=== PATIENT | female | born 1985 | race Caucasian/White ===

== ENCOUNTER 2016-11-27 21:00 | Emergency (ER) | payer BC ==
[2016-11-27 21:15] VITALS: BP 143/101
[2016-11-27] MEDS ORDERED: Metoclopramide 10 MG/2 ML SDV ONE (22:02)
[2016-11-27] MEDS ORDERED: diphenhydrAMINE 50 MG/ML SDV ONE (22:03)
[2016-11-27] MEDS ORDERED: Ketorolac 60 MG/2 ML SDV ONE (22:04)
[2016-11-27] MEDS ORDERED: diphenhydrAMINE 50 MG/ML SDV IM ONE (22:08)
[2016-11-27] MEDS ORDERED: Ketorolac 60 MG/2 ML SDV IM ONE (22:08)
[2016-11-27] MEDS ORDERED: Metoclopramide 10 MG/2 ML SDV IM ONE (22:08)
--- NOTE | 2016-11-27 22:37 | EDM.PDOC ---
ED HPI GENERAL MEDICAL PROBLEM - General Chief Complaint: Headache Stated Complaint: Headache Time Seen by Provider: 11/27/16 21:50 Source of Information: Reports: Patient, RN Notes Reviewed History Limitations: Reports: No Limitations - History of Present Illness INITIAL COMMENTS - FREE TEXT/NARRATIVE: 31 year old female presents to the ED with complaints of headache behind both eyes and into her neck. She symptoms started two days ago and have progressively worsened. She's tried OTC pain relievers, benadryl, and essential oils with no relief. She has associated photophobia and phonophobia. She is nauseated but has not vomited. No slurred speech, weakness in extremities, vision changes, fever, chills, sweats, chest pain, shortness of breath or abdominal pain. Headache Pain Score (Numeric/FACES): 9 - Related Data Allergies Allergy/AdvReac Type Severity Reaction Status Date / Time fentanyl Allergy Itching Verified 11/27/16 21:15 pertussis vaccine,fluid Allergy Anaphylactic Verified 11/27/16 21:15 [Pertussis Vaccine,Fluid] Shock risperidone Allergy Hives Verified 11/27/16 21:15 cefdinir [From Omnicef] AdvReac Muscle Verified 11/27/16 21:15 Aches promethazine HCl AdvReac Muscle Verified 11/27/16 21:15 [From Phenergan] Weakness Home Meds: Home Meds valACYclovir HCl [Valtrex] 1,000 mg PO DAILY 03/24/15 [History] Levothyroxine 50 mcg PO DAILY 10/25/15 [History] Budesonide [Budesonide EC] 6 mg PO DAILY 01/26/16 [History] Venlafaxine [Effexor XR] 37.5 mg PO DAILY 02/15/16 [History] SUMAtriptan Succinate [Imitrex] 1 tab PO ASDIRECTED PRN 03/13/16 [History] Omeprazole 20 mg PO DAILY 11/27/16 [History] Past Medical History HEENT History: Reports: Impaired Vision Other HEENT History: wears eyeglasses. Cardiovascular History: Reports: Heart Murmur Gastrointestinal History: Reports: GERD Other Gastrointestinal History: Eosinophillic esophagitis Genitourinary History: Reports: Renal Calculus Other Genitourinary History: Hx of kidney stone--required removal. 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 03/14/16 lap vaginal hysterectomy with no complications Musculoskeletal History: Reports: Back Pain, Chronic Neurological History: Reports: Migraines Psychiatric History: Reports: Bipolar, Depression, Suicide Attempt Endocrine/Metabolic History: Reports: Hypothyroidism Hematologic History: Reports: Anemia Dermatologic History: Reports: Other (See Below) Other Dermatologic History: cold sores - Infectious Disease History Infectious Disease History: Reports: Chicken Pox, Herpes - Past Surgical History HEENT Surgical History: Reports: Naso-Sinus Surgery Cardiovascular Surgical History: Reports: None GI Surgical History: Reports: Cholecystectomy, Hernia Repair/Other Female Surgical History: Reports: Section, Hysterectomy, Lithotripsy /ESWL, Ureteral Stent Endocrine Surgical History: Reports: None Neurological Surgical History: Reports: None Musculoskeletal Surgical History: Reports: None Social & Family History - Family History Family Medical History: Noncontributory - Tobacco Use Smoking Status *Q: Former Smoker Years of Tobacco use: 8 Packs/Tins Daily: 1.5 Used Tobacco, but Quit: Yes Month Tobacco Last Used: 2011 Second Hand Smoke Exposure: No - Caffeine Use Caffeine Use: Reports: None - Alcohol Use Days Per Week of Alcohol Use: 0 - Recreational Drug Use Recreational Drug Use: No Drug Use in Last 12 Months: No - Living Situation & Occupation Living situation: Reports: , with Spouse, with Family Occupation: Unemployed ED ROS GENERAL - Review of Systems Review Of Systems: See Below Constitutional: Reports: No Symptoms. Denies: Fever, Chills, Diaphoresis HEENT: Reports: No Symptoms. Denies: Vision Change Respiratory: Reports: No Symptoms. Denies: Cough Cardiovascular: Reports: No Symptoms. Denies: Chest Pain GI/Abdominal: Reports: Nausea. Denies: Abdominal Pain, Vomiting Neurological: Reports: Headache. Denies: Confusion, Dizziness, Numbness, Syncope, Tingling, Trouble Speaking, Difficulty Walking, Weakness, Change in Speech - Physical Exam Exam: See Below Exam Limited By: No Limitations General Appearance: Alert, WD/WN, Moderate Distress Eye Exam: Bilateral Eye: EOMI, Normal Inspection, PERRL Head Exam: Atraumatic, Normocephalic Neck: Normal Inspection, Supple, Non-Tender, Full Range of Motion, Other (no nuchal rigidity ) Respiratory/Chest: No Respiratory Distress, Lungs Clear, Normal Breath Sounds Cardiovascular: Regular Rate, Rhythm GI/Abdominal: Normal Bowel Sounds, Soft, Non-Tender Neuro Exam (Abbreviated): Alert, Oriented, Normal Cognition, Normal Gait, No Motor/Sensory Deficits, Other (cerebellear testing intact ) Course - Vital Signs Last Recorded V/S: Last Vital Signs Temp 98.2 F 11/27/16 21:12 Pulse 96 11/27/16 21:12 Resp 20 11/27/16 21:12 BP 143/101 H 11/27/16 21:12 Pulse Ox 99 11/27/16 21:12 - Orders/Labs/Meds Meds: Medications Discontinued Medications Generic Name Dose Route Start Last Admin Trade Name Freq PRN Reason Stop Dose Admin Diphenhydramine HCl Confirm 11/27/16 22:03 11/27/16 22:42 Benadryl Administered 11/27/16 22:04 Not Given Dose 50 mg .ROUTE .STK-MED ONE Diphenhydramine HCl 50 mg 11/27/16 22:08 11/27/16 22:44 Benadryl IM 11/27/16 22:09 50 mg ONETIME ONE Administration Ketorolac Tromethamine Confirm 11/27/16 22:04 11/27/16 22:42 Toradol Administered 11/27/16 22:05 Not Given Dose 60 mg .ROUTE .STK-MED ONE Ketorolac Tromethamine 60 mg 11/27/16 22:08 11/27/16 22:10 Toradol IM 11/27/16 22:09 60 mg ONETIME ONE Administration Metoclopramide HCl Confirm 11/27/16 22:02 11/27/16 22:42 Reglan Administered 11/27/16 22:03 Not Given Dose 10 mg .ROUTE .STK-MED ONE Metoclopramide HCl 5 mg 11/27/16 22:08 11/27/16 22:11 Reglan IM 11/27/16 22:09 5 mg ONETIME ONE Administration - Re-Assessments/Exams Free Text/Narrative Re-Assessment/Exam: Neuro exam is normal, CT of head is not indicated. Initial treatment includes Toradol, Reglan, and Benadryl. Patient had significant improvement in symptoms. Her neck muscles are tense and sore, indicating this is likely a tension-type headache rather than migraine. She was educated on treatments for tension headaches including stretching, heating pad, and date night caregiver. Encouraged to return with any new or worsening symptoms. Discharge instructions as documented. Departure - Departure Time of Disposition: 23:21 Disposition: Home, Self-Care 01 Condition: Good Clinical Impression: Tension-type headache - Discharge Information Referrals: Diamond Levin PA-C [Primary Care Provider] - Forms: ED Department Discharge Additional Instructions: Ibuprofen 800mg every 8 hours as needed See your chiropractor and discuss ultrasound therapy. Also consider Dr. [facility] with [facility] Return to Er if you develop fever, or new or worsening symptoms No driving today due to sedating medications.
== END 2016-11-27 23:35 | disposition home or self-care (01) ==
LOC: JD.ED 21:00
DX: G44.209 Tension-type headache, unspecified, not intractable (principal); K21.9 Gastro-esophageal reflux disease without esophagitis; F31.9 Bipolar disorder, unspecified; Z86.2 Personal history of diseases of the blood and blood-forming organs and certain disorders involving the immune mechanism; E03.9 Hypothyroidism, unspecified; Z90.710 Acquired absence of both cervix and uterus; Z98.890 Other specified postprocedural states; Z90.49 Acquired absence of other specified parts of digestive tract; Z87.442 Personal history of urinary calculi; Z87.891 Personal history of nicotine dependence; Z79.899 Other long term (current) drug therapy; Z88.1 Allergy status to other antibiotic agents; Z88.7 Allergy status to serum and vaccine; Z88.8 Allergy status to other drugs, medicaments and biological substances
CPT/HCPCS: 96372; 99283; J1200; J1885; J2765

== ENCOUNTER 2017-02-16 17:08 | Emergency (ER) | payer BC ==
[2017-02-16] MEDS ORDERED: Sodium Chloride 0.9% 1,000 ML IV ONE (17:36)
[2017-02-16] MEDS ORDERED: Ketorolac 30 MG/ML SDV IVPUSH ONE (17:36)
[2017-02-16] MEDS ORDERED: Haloperidol Lactate 5 MG/ML SDV IVPUSH ONE (17:36)
[2017-02-16] MEDS ORDERED: Sodium Chloride 0.9% 10 ML Syringe FLUSH PRN (17:36)
[2017-02-16] MEDS ORDERED: Ondansetron 4 MG/2 ML SDV IVPUSH ONE (17:36)
[2017-02-16] MEDS ORDERED: diphenhydrAMINE 50 MG/ML SDV IVPUSH ONE (17:36)
[2017-02-16] MEDS ORDERED: Benzonatate 100 MG Cap PO ONE (17:37)
--- NOTE | 2017-02-16 17:44 | EDM.PDOC ---
ED HPI GENERAL MEDICAL PROBLEM - General Chief Complaint: Headache Stated Complaint: MIGRANE/CHEST PAIN Time Seen by Provider: 02/16/17 17:21 Source of Information: Reports: Patient History Limitations: Reports: No Limitations - History of Present Illness INITIAL COMMENTS - FREE TEXT/NARRATIVE: Patient is a 32-year-old female who presents to the ED complaining of right- sided retro-orbital headache, productive cough, and intermittent chest pain. Patient states she's been fighting a upper respiratory infection for the past month. She's been on 2 rounds of antibiotics doxycycline and also Augmentin with incomplete resolution. Patient states 3 of her daughters had viral upper respiratory infections that resolved on their own accord. States her cough is productive with intermittent wheezing noted. She does have a history of asthma and states she been using a albuterol inhaler intermittently. She was also on prednisone for a short period of time as well. Cough has been keeping her up at night. States this past Sunday developed the headache this persisted throughout the course of the week. She has been getting intermittent relief with taking Excedrin Migraine and Tylenol. States this past week has been very stressful. 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 This means that they will be looking for a different job elsewhere. In addition her best friend's 3-year-old daughter this past . She has not been getting much sleep. She's also been experiencing intermittent left- sided/substernal chest discomfort with taking a deep breath and coughing. States at times chest discomfort does come on at rest. She denies any fever/ chills, shortness of breath, dizziness, vision changes, no sitting to extremities, stiff neck, nausea or vomiting, abdominal pain, swelling to her lower extremity is, or any additional complaints. She has no history of DVT/PE. Headache Pain Score (Numeric/FACES): 8 - Related Data Allergies Allergy/AdvReac Type Severity Reaction Status Date / Time fentanyl Allergy Itching Verified 11/27/16 21:15 pertussis vaccine,fluid Allergy Anaphylactic Verified 11/27/16 21:15 [Pertussis Vaccine,Fluid] Shock risperidone Allergy Hives Verified 11/27/16 21:15 cefdinir [From Omnicef] AdvReac Muscle Verified 11/27/16 21:15 Aches promethazine HCl AdvReac Muscle Verified 11/27/16 21:15 [From Phenergan] Weakness Home Meds: Home Meds valACYclovir HCl [Valtrex] 1,000 mg PO DAILY 03/24/15 [History] Levothyroxine 50 mcg PO DAILY 10/25/15 [History] Budesonide [Budesonide EC] 6 mg PO DAILY 01/26/16 [History] Venlafaxine [Effexor XR] 37.5 mg PO DAILY 02/15/16 [History] SUMAtriptan Succinate [Imitrex] 1 tab PO ASDIRECTED PRN 03/13/16 [History] Omeprazole 20 mg PO DAILY 11/27/16 [History] Benzonatate [Tessalon Perles] 100 mg PO TID PRN #21 cap 02/16/17 [Rx] Past Medical History HEENT History: Reports: Impaired Vision Other HEENT History: wears eyeglasses. Cardiovascular History: Reports: Heart Murmur Gastrointestinal History: Reports: GERD Other Gastrointestinal History: Eosinophillic esophagitis Genitourinary History: Reports: Renal Calculus Other Genitourinary History: Hx of kidney stone--required removal. 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 03/14/16 lap vaginal hysterectomy with no complications Musculoskeletal History: Reports: Back Pain, Chronic Neurological History: Reports: Migraines Psychiatric History: Reports: Bipolar, Depression, Suicide Attempt Endocrine/Metabolic History: Reports: Hypothyroidism Hematologic History: Reports: Anemia Dermatologic History: Reports: Other (See Below) Other Dermatologic History: cold sores - Infectious Disease History Infectious Disease History: Reports: Chicken Pox, Herpes - Past Surgical History HEENT Surgical History: Reports: Naso-Sinus Surgery Cardiovascular Surgical History: Reports: None GI Surgical History: Reports: Cholecystectomy, Hernia Repair/Other Female Surgical History: Reports: Section, Hysterectomy, Lithotripsy /ESWL, Ureteral Stent Endocrine Surgical History: Reports: None Neurological Surgical History: Reports: None Musculoskeletal Surgical History: Reports: None Social & Family History - Family History Family Medical History: Noncontributory - Tobacco Use Smoking Status *Q: Former Smoker Years of Tobacco use: 8 Packs/Tins Daily: 1.5 Used Tobacco, but Quit: Yes Month Tobacco Last Used: 2011 Second Hand Smoke Exposure: No - Caffeine Use Caffeine Use: Reports: None - Alcohol Use Days Per Week of Alcohol Use: 0 - Recreational Drug Use Recreational Drug Use: No Drug Use in Last 12 Months: No - Living Situation & Occupation Living situation: Reports: , with Spouse, with Family Occupation: Unemployed ED ROS GENERAL - Review of Systems Review Of Systems: See Below Constitutional: Reports: Fatigue. Denies: Fever, Chills, Malaise, Weakness, Decreased Appetite HEENT: Reports: Rhinitis. Denies: Ear Pain, Throat Pain, Throat Swelling Respiratory: Reports: Cough, Sputum. Denies: Shortness of Breath, Wheezing, Pleuritic Chest Pain, Hemoptysis Cardiovascular: Reports: Chest Pain. Denies: Dyspnea on Exertion, Lightheadedness, Palpitations, PND, Syncope GI/Abdominal: Reports: No Symptoms : Reports: No Symptoms Musculoskeletal: Reports: No Symptoms Skin: Reports: No Symptoms Neurological: Reports: Headache. Denies: Dizziness, Numbness, Tingling, Difficulty Walking Psychiatric: Reports: Anxiety - Physical Exam Exam: See Below Exam Limited By: No Limitations General Appearance: Alert, WD/WN, Mild Distress Eye Exam: Bilateral Eye: EOMI, PERRL Ears: Normal External Exam, Normal Canal, Hearing Grossly Normal, Normal TMs Nose: Nasal Swelling, Nasal Drainage, Clear Rhinorrhea Throat/Mouth: Normal Inspection, Normal Oropharynx, Normal Voice, No Airway Compromise Head Exam: Atraumatic, Normocephalic Neck: Normal Inspection, Supple, Non-Tender, Full Range of Motion. No: Lymphadenopathy (L), Lymphadenopathy (R) Respiratory/Chest: No Respiratory Distress, Lungs Clear, Normal Breath Sounds, No Accessory Muscle Use, Chest Non-Tender Cardiovascular: Normal Peripheral Pulses, No Murmur, Tachycardia GI/Abdominal: Normal Bowel Sounds, Soft, Non-Tender, No Organomegaly, No Distention Neuro Exam (Abbreviated): Alert, Oriented, CN II-XII Intact, Normal Cognition, Normal Gait, No Motor/Sensory Deficits, Other (Cerebellar function intact. No sensorimotor deficits) Back Exam: Normal Inspection Extremities: Normal Inspection, Normal Range of Motion, Non-Tender, No Pedal Edema, Normal Capillary Refill Psychiatric: Normal Affect, Normal Mood Skin Exam: Warm, Dry, Intact, Normal Color Course - Vital Signs Last Recorded V/S: Last Vital Signs Temp 97.2 F 02/16/17 17:16 Pulse 86 02/16/17 20:19 Resp 18 02/16/17 20:19 BP 134/74 02/16/17 20:19 Pulse Ox 93 L 02/16/17 20:19 - Orders/Labs/Meds Orders: Active Orders 24 hr Category Date Time Status EKG Documentation Completion [RC] STAT Care 02/16/17 17:36 Active Peripheral IV Care [RC] . DIRECTED Care 02/16/17 17:36 Active Chest 2V [CR] Stat Exams 02/16/17 17:36 Taken Peripheral IV Insertion Adult [OM.PC] Stat Oth 02/16/17 17:36 Ordered Labs: Laboratory Tests 02/16/17 02/16/17 Range/Units 18:15 18:15 WBC 11.35 H (3.98-10.04) K/mm3 RBC 4.88 (3.98-5.22) M/mm3 Hgb 13.8 (11.2-15.7) gm/L Hct 42.5 (34.1-44.9) % MCV 87.1 (79.4-94.8) fl MCH 28.3 (25.6-32.2) pg MCHC 32.5 (32.2-35.5) g/dl RDW Std Deviation 45.9 (36.4-46.3) fL Plt Count 348 (182-369) K/mm3 MPV 9.4 (9.4-12.3) fl Neut % (Auto) 66.9 (34.0-71.1) % Lymph % (Auto) 25.1 (19.3-51.7) % [place] % (Auto) 5.4 (4.7-12.5) % Eos % (Auto) 1.7 (0.7-5.8) Baso % (Auto) 0.3 (0.1-1.2) % Neut # (Auto) 7.60 H (1.56-6.13) K/mm3 Lymph # (Auto) 2.85 (1.18-3.74) K/mm3 [place] # (Auto) 0.61 H (0.24-0.36) K/mm3 Eos # (Auto) 0.19 (0.04-0.36) K/mm3 Baso # (Auto) 0.03 (0.01-0.08) K/mm3 Sodium 139 (136-145) mEq/L Potassium 4.3 (3.5-5.1) mEq/L Chloride 105 (98-107) mEq/L Carbon Dioxide 25 (21-32) mEq/L Anion Gap 13.3 (5-15) BUN 15 (7-18) mg/dL Creatinine 0.8 (0.55-1.02) mg/dL Est Cr Clr Drug Dosing 96.26 mL/min Estimated GFR (MDRD) > 60 (>60) mL/min BUN/Creatinine Ratio 18.8 H (14-18) Glucose 118 H (74-106) mg/dL Calcium 9.1 (8.5-10.1) mg/dL Total Bilirubin 0.2 (0.2-1.0) mg/dL AST 14 L (15-37) U/L ALT 21 (14-59) U/L Alkaline Phosphatase 98 (46-116) U/L C-Reactive Protein < 0.2 (<1.0) mg/dL Total Protein 7.6 (6.4-8.2) g/dl Albumin 3.9 (3.4-5.0) g/dl Globulin 3.7 gm/dL Albumin/Globulin Ratio 1.1 (1-2) Meds: Medications Discontinued Medications Generic Name Dose Route Start Last Admin Trade Name Freq PRN Reason Stop Dose Admin Benzonatate 200 mg 02/16/17 17:37 02/16/17 18:09 Tessalon Perles PO 02/16/17 17:38 200 mg ONETIME ONE Administration Diphenhydramine HCl 50 mg 02/16/17 17:36 02/16/17 18:08 Benadryl IVPUSH 02/16/17 17:37 50 mg ONETIME ONE Administration Haloperidol Lactate 5 mg 02/16/17 17:36 02/16/17 18:11 Haldol IVPUSH 02/16/17 17:37 5 mg ONETIME ONE Administration Sodium Chloride 1,000 mls @ 999 mls/hr 02/16/17 17:36 02/16/17 18:11 Normal Saline IV 02/16/17 18:36 999 mls/hr ONETIME ONE Administration Ketorolac Tromethamine 30 mg 02/16/17 17:36 02/16/17 18:10 Toradol IVPUSH 02/16/17 17:37 30 mg ONETIME ONE Administration Ondansetron HCl 4 mg 02/16/17 17:36 02/16/17 18:08 Zofran IVPUSH 02/16/17 17:37 4 mg ONETIME ONE Administration Sodium Chloride 10 ml 02/16/17 17:36 02/16/17 18:12 Saline Flush FLUSH 10 ml ASDIRECTED PRN Administration Keep Vein Open - Re-Assessments/Exams Free Text/Narrative Re-Assessment/Exam: IV established with NS 999 milliliters per hour, Haldol 5 mg IVP, Toradol 30 mg IVP, Benadryl 50 mg IVP, Zofran 4 mg IVP, and Tessalon Perles 200 mg by mouth. We'll obtain basic labs CBC, chem 14, CRP, chest x-ray, and EKG. Chest x-ray did not reveal any acute abnormalities. Normal chest x-ray. EKG sinus rhythm at a rate of [address] changes noted. Labs reviewed with no concerning findings. 1950 Reassessment, patient's feeling much better. She has no chest pain. Vital signs are stable. Heart rate within normal limits. PERC Rule Out. She is ready be discharged home. Discharge instructions as documented. Departure - Departure Time of Disposition: 20:12 Disposition: Home, Self-Care 01 Condition: Good Clinical Impression: Viral upper respiratory tract infection with cough, Headache above the eye region, Atypical chest pain - Discharge Information Prescriptions: Benzonatate [Tessalon Perles] 100 mg PO TID PRN #21 cap PRN Reason: Cough Instructions: Viral Respiratory Infection, [id number], Nonspecific Chest Pain , Sinus Headache Referrals: Diamond Levin PA-C [Primary Care Provider] - Forms: ED Department Discharge Additional Instructions: Upper respiratory infection is viral and well run its course resolving on its own. Treatment is symptomatic care including Flonase 2 sprays each nare twice a day, Tylenol and Motrin in alternating fashion for pain, push the fluids, ensure adequate rest, take Tessalon Perles 1 tablet 3 times a day as needed for cough. Suggest going home this evening finding a dark room with no distractions to get noninterrupted sleep. Follow-up with PCP as needed. Continue taking all your home medications as prescribed. Return to the ED for any new or worsening symptoms. No driving this evening. - My Orders Last 24 Hours: My Active Orders 02/16/17 17:36 EKG Documentation Completion [RC] STAT Peripheral IV Care [RC] . DIRECTED Chest 2V [CR] Stat Peripheral IV Insertion Adult [OM.PC] Stat - Assessment/Plan Last 24 Hours: My Active Orders 02/16/17 17:36 EKG Documentation Completion [RC] STAT Peripheral IV Care [RC] . DIRECTED Chest 2V [CR] Stat Peripheral IV Insertion Adult [OM.PC] Stat
[2017-02-16 20:21] VITALS: BP 134/74
--- NOTE | 2017-02-19 06:46 | CR ---
Chest: Two views of the chest were obtained. Comparison: Prior chest x-ray of 10/05/15. Heart size and mediastinum are normal. Lungs are clear. Bony structures are unremarkable. Surgical clips are seen from prior cholecystectomy. Impression: 1. Nothing acute is identified on two-view chest x-ray. Diagnostic code #1
== END 2017-02-16 20:25 | disposition home or self-care (01) ==
LOC: SUPCPDRO 17:08 → JD.ED 17:08
DX: J06.9 Acute upper respiratory infection, unspecified (principal); R51 Headache; R07.89 Other chest pain; K21.9 Gastro-esophageal reflux disease without esophagitis; F31.9 Bipolar disorder, unspecified; E03.9 Hypothyroidism, unspecified; Z86.2 Personal history of diseases of the blood and blood-forming organs and certain disorders involving the immune mechanism; Z87.891 Personal history of nicotine dependence; Z79.899 Other long term (current) drug therapy; Z88.1 Allergy status to other antibiotic agents; Z88.8 Allergy status to other drugs, medicaments and biological substances; Z88.7 Allergy status to serum and vaccine
CPT/HCPCS: 36415; 71020; 80053; 85025; 86140; 93005; 96361; 96374; 96375; 99285; A9270; J1200; J1630; J1885; J2405; J7040; J7050; 93010

== ENCOUNTER 2017-05-12 20:29 | Emergency (ER) | payer BC ==
[2017-05-12 20:47] VITALS: BP 135/105
--- NOTE | 2017-05-12 20:51 | EDM.PDOC ---
ED HPI GENERAL MEDICAL PROBLEM - General Chief Complaint: Lower Extremity Injury/Pain Stated Complaint: POSSIBLY REINJURED FOOT FROM PREVIOUS SURGERY Time Seen by Provider: 05/12/17 20:31 Source of Information: Reports: Patient History Limitations: Reports: No Limitations - History of Present Illness INITIAL COMMENTS - FREE TEXT/NARRATIVE: This is a 32-year-old female. About a month ago or so she had surgery on her right foot where she had a fractured sesamoid bone and Dr. Inman remove the sesamoid bone and stitch the tendon back together. Apparently this afternoon she stepped wrong on her foot and she felt a pop and the incision that had previously healed part of it has dehisced and she is having some slight bleeding. When she felt a pop in her right foot she also felt pain that seemed to go up into her calf area on the medial side. Due to the increasing pain she comes to the ER for evaluation. She isn't exactly sure what he might have done to her foot other than take out the sesamoid bone and stitch the tendon. She still has downward movement of her great toe suggesting the tendon is still intact. He denies any other acute symptoms. She has difficulty time walking on that right foot but she does have crutches at home. Left Feet Pain Score (Numeric/FACES): 8 - Related Data Allergies Allergy/AdvReac Type Severity Reaction Status Date / Time fentanyl Allergy Itching Verified 05/12/17 20:48 pertussis vaccine,fluid Allergy Anaphylactic Verified 05/12/17 20:48 [Pertussis Vaccine,Fluid] Shock risperidone Allergy Hives Verified 05/12/17 20:48 cefdinir [From Omnicef] AdvReac Muscle Verified 05/12/17 20:48 Aches promethazine HCl AdvReac Muscle Verified 05/12/17 20:48 [From Phenergan] Weakness Home Meds: Home Meds valACYclovir HCl [Valtrex] 1,000 mg PO DAILY 03/24/15 [History] Levothyroxine 50 mcg PO DAILY 10/25/15 [History] Budesonide [Budesonide EC] 6 mg PO DAILY 01/26/16 [History] Venlafaxine [Effexor XR] 75 mg PO DAILY 02/15/16 [History] SUMAtriptan Succinate [Imitrex] 1 tab PO ASDIRECTED PRN 03/13/16 [History] Omeprazole 40 mg PO BID 11/27/16 [History] Acetaminophen/oxyCODONE [Percocet 325-5 MG] 1 each PO Q4H PRN #10 tab 05/12/17 [ Rx] Pregabalin [Lyrica] 100 mg PO DAILY 05/12/17 [History] Past Medical History HEENT History: Reports: Impaired Vision Other HEENT History: wears eyeglasses. Cardiovascular History: Reports: Heart Murmur Gastrointestinal History: Reports: GERD Other Gastrointestinal History: Eosinophillic esophagitis Genitourinary History: Reports: Renal Calculus Other Genitourinary History: Hx of kidney stone--required removal. CSO History: Reports: Other OB/BYN History: CSX x2, HX of preeclampsia with first and high blood pressure with second . 03/14/16 lap vaginal hysterectomy with no complications Musculoskeletal History: Reports: Back Pain, Chronic Neurological History: Reports: Migraines Psychiatric History: Reports: Bipolar, Depression, Suicide Attempt Endocrine/Metabolic History: Reports: Hypothyroidism Hematologic History: Reports: Anemia Dermatologic History: Reports: Other (See Below) Other Dermatologic History: cold sores - Infectious Disease History Infectious Disease History: Reports: Chicken Pox, Herpes - Past Surgical History HEENT Surgical History: Reports: Naso-Sinus Surgery Cardiovascular Surgical History: Reports: None GI Surgical History: Reports: Cholecystectomy, Hernia Repair/Other Female Surgical History: Reports: Section, Hysterectomy, Lithotripsy /ESWL, Ureteral Stent Endocrine Surgical History: Reports: None Neurological Surgical History: Reports: None Musculoskeletal Surgical History: Reports: None Social & Family History - Family History Family Medical History: Noncontributory - Tobacco Use Smoking Status *Q: Former Smoker Years of Tobacco use: 8 Packs/Tins Daily: 1.5 Used Tobacco, but Quit: Yes Month Tobacco Last Used: 2011 Second Hand Smoke Exposure: No - Caffeine Use Caffeine Use: Reports: None - Alcohol Use Days Per Week of Alcohol Use: 0 - Recreational Drug Use Recreational Drug Use: No Drug Use in Last 12 Months: No - Living Situation & Occupation Living situation: Reports: , with Spouse, with Family Occupation: Unemployed Review of Systems - Review of Systems Review Of Systems: See Below Constitutional: Denies: Chills, Fever Eyes: Reports: No Symptoms Ears: Reports: No Symptoms Nose: Reports: No Symptoms Mouth/Throat: Reports: No Symptoms Respiratory: Reports: No Symptoms Cardiovascular: Reports: No Symptoms GI/Abdominal: Reports: Other (History of colitis and abdominal pain periodically ) Genitourinary: Reports: No Symptoms Musculoskeletal: Reports: Other (As per history of present illness) Skin: Reports: Other (As per history of present illness) Neurological: Reports: Other (Tension-type headaches) Psychiatric: Reports: No Symptoms ED EXAM, GENERAL - Physical Exam Exam: See Below Exam Limited By: No Limitations General Appearance: Alert, WD/WN, Mild Distress Eye Exam: Bilateral Eye: Normal Inspection Ears: Normal External Exam Nose: Normal Inspection Throat/Mouth: Normal Inspection, Normal Lips, Normal Voice, No Airway Compromise Head: Normocephalic Neck: Supple Respiratory/Chest: No Respiratory Distress Back Exam: Full Range of Motion Extremities: Other (Right foot shows a well-healed incision between the first and second metatarsals and the very tip of that incision appears to have split open slightly and is bleeding slightly, there is no evidence of infection at this time. Movement of the great toe up or down causes pain but she is able to bend down on her own without my help, she does complain of some soreness of the back of her calf as well, she has a 2+ pedal pulse noted) Neurological: Alert, Oriented Psychiatric: Anxious Skin Exam: Warm, Dry Course - Vital Signs Last Recorded V/S: Last Vital Signs Temp 97.5 F 05/12/17 20:42 Pulse 108 H 05/12/17 20:42 Resp 18 05/12/17 20:42 BP 135/105 H 05/12/17 20:42 Pulse Ox 98 05/12/17 20:42 - Orders/Labs/Meds Orders: Active Orders 24 hr Category Date Time Status Foot Comp Min 3V Rt [CR] Stat Exams 05/12/17 20:46 Taken - Radiology Interpretation Free Text/Narrative:: The right foot x-rays do not show any acute findings or fractures. - Re-Assessments/Exams Free Text/Narrative Re-Assessment/Exam: 05/12/17 21:31 I spoke to the patient and her regarding the x-ray results. Going to wrap this. I encouraged her to ice it down and a follow-up with Dr. Inman on Sunday for recheck. I will not place her back on antibiotics since the incision itself does not appear to be draining and does not appear to have any redness or inflammation noted. Departure - Departure Time of Disposition: 21:32 Disposition: Home, Self-Care 01 Condition: Good Clinical Impression: Status post foot surgery, Right foot pain Dehiscence of closure of skin Qualifiers: Encounter type: initial encounter Qualified Code(s): T81.31XA - Disruption of external operation (surgical) wound, not elsewhere classified, initial encounter - Discharge Information Prescriptions: Acetaminophen/oxyCODONE [Percocet 325-5 MG] 1 each PO Q4H PRN #10 tab PRN Reason: Pain Referrals: Debo Manning PA-C [Primary Care Provider] - Elgin Inman II, DPM [Physician] - Forms: ED Department Discharge Additional Instructions: Crutches at all times do not bear weight on that right foot, keep it up and elevated take Percocet for pain and use the ice as needed to help with the pain , follow up with Dr. Inman on Sunday for recheck, return to the ER if needed - My Orders Last 24 Hours: My Active Orders 05/12/17 20:46 Foot Comp Min 3V Rt [CR] Stat - Assessment/Plan Last 24 Hours: My Active Orders 05/12/17 20:46 Foot Comp Min 3V Rt [CR] Stat
--- NOTE | 2017-05-13 08:58 | CR ---
Right foot: Four views of the right foot were obtained. Comparison: No prior foot exam. Large os navicularis is noted. Joint spaces are preserved. No acute fracture, dislocation or other bony abnormality is seen. Impression: 1. Large os navicularis. 2. No additional abnormality is appreciated on right foot exam. Diagnostic code #2
== END 2017-05-12 21:40 | disposition home or self-care (01) ==
LOC: JD.ED 20:29
DX: T81.31XA Disruption of external operation (surgical) wound, not elsewhere classified, initial encounter (principal); Z98.890 Other specified postprocedural states; K21.9 Gastro-esophageal reflux disease without esophagitis; F31.9 Bipolar disorder, unspecified; E03.9 Hypothyroidism, unspecified; Z87.891 Personal history of nicotine dependence; Z79.899 Other long term (current) drug therapy; Z88.1 Allergy status to other antibiotic agents; Z88.8 Allergy status to other drugs, medicaments and biological substances; Z88.7 Allergy status to serum and vaccine
CPT/HCPCS: 73630-26-RT; 73630-RT; 99284

== ENCOUNTER 2017-07-11 08:40 | Day surgery (SDC) | payer MEDICAID ==
[~2017-07-11 08:40] MED LIST: Lactated Ringers 1,000 ML IV SCH; Lidocaine 1% 4 ML ONE; Lidocaine 1%/Sod Bicarbonate in NS 8.4% 1 ML Syringe IDERM PRN; Midazolam 1 MG/ML 2 ML SDV ONE; Propofol 200 MG/20 ML SDV ONE; Sodium Chloride 0.9% 10 ML Syringe FLUSH PRN; fentaNYL 100 MCG/2 ML SDV ONE
[2017-07-11] MEDS ORDERED: Bupivacaine 0.25% 30 ML SDV ONE (08:44)
--- NOTE | 2017-07-11 08:55 | PCM.PREANE ---
Preanesthetic Assessment - Procedure Proposed Procedure: I and D Right first web space - Anesthesia/Transfusion/Family Hx Anesthesia History: Prior Anesthesia Without Reaction Family History of Anesthesia Reaction: No Transfusion History: No Prior Transfusion(s) Intubation History: Unknown - Review of Systems General: No Symptoms Pulmonary: No Symptoms Cardiovascular: No Symptoms Gastrointestinal: No Symptoms Neurological: No Symptoms Other: Reports: Thyroid Problems (hypothyroid), Anxiety - Physical Assessment NPO Status Date: 07/10/17 NPO Status Time: 00:00 Pulse: 94 O2 Sat by Pulse Oximetry: 96 Respiratory Rate: 20 Blood Pressure: 128/77 Temperature: 37.3 C Height: 1.65 m Weight: 92.533 kg ASA Class: 2 Mental Status: Alert & Oriented x3 Airway Class: Mallampati = 1 Dentition: Reports: Normal Dentition, [place](s) Thyro-Mental Finger Breadths: 3 Mouth Opening Finger Breadths: 3 ROM/Head Extension: Full Lungs: Clear to Auscultation, Normal Respiratory Effort Cardiovascular: Regular Rate, Regular Rhythm, No Murmurs - Lab Values: Laboratory Last Values MRSA (PCR) Negative 07/10/17 15:44 - Allergies Allergies/Adverse Reactions: Allergies Allergy/AdvReac Type Severity Reaction Status Date / Time cephalexin Allergy Headache Verified 07/10/17 13:14 pertussis vaccine,fluid Allergy Anaphylactic Verified 05/12/17 20:48 [Pertussis Vaccine,Fluid] Shock risperidone Allergy Hives Verified 05/12/17 20:48 shellfish derived Allergy Anaphylactic Verified 07/10/17 13:14 Shock cefdinir [From Omnicef] AdvReac Muscle Verified 05/12/17 20:48 Aches promethazine HCl AdvReac Muscle Verified 05/12/17 20:48 [From Phenergan] Weakness - Blood Blood Available: No Product(s) Available: None - Anesthesia Plan Pre-Op Medication Ordered: None - Acknowledgements Anesthesia Type Planned: MAC Pt an Appropriate Candidate for the Planned Anesthesia: Yes Alternatives and Risks of Anesthesia Discussed w Pt/Guardian: Yes Pt/Guardian Understands and Agrees with Anesthesia Plan: Yes PreAnesthesia Questionnaire HEENT History: Reports: Allergic Rhinitis, Impaired Vision Other HEENT History: wears eyeglasses. Cardiovascular History: Reports: Heart Murmur Respiratory History: Reports: Asthma Gastrointestinal History: Reports: GERD Other Gastrointestinal History: Eosinophillic esophagitis Genitourinary History: Reports: Renal Calculus Other Genitourinary History: Hx of kidney stone--required removal. 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 03/14/16 lap vaginal hysterectomy with no complications Musculoskeletal History: Reports: Back Pain, Chronic Neurological History: Reports: Migraines Psychiatric History: Reports: Bipolar, Depression, Suicide Attempt Endocrine/Metabolic History: Reports: Hypothyroidism Hematologic History: Reports: Anemia Dermatologic History: Reports: Other (See Below) Other Dermatologic History: cold sores - Infectious Disease History Infectious Disease History: Reports: Chicken Pox, Herpes - Past Surgical History HEENT Surgical History: Reports: Naso-Sinus Surgery Other HEENT Surgeries/Procedures: Deviated septum repair Cardiovascular Surgical History: Reports: None Other Cardiovascular Surgeries/Procedures: Pt states Dr. Saldivar heard a heart murmur in the clinic. States she has one with the last and it went away. GI Surgical History: Reports: Cholecystectomy, EGD, Hernia Repair/Other Other GI Surgeries/Procedures: Umbilical hernia repair Female Surgical History: Reports: Section, Hysterectomy, Lithotripsy /ESWL, Ureteral Stent Other Female Surgeries/Procedures: Kidney stent on R kidney Endocrine Surgical History: Reports: None Neurological Surgical History: Reports: None Musculoskeletal Surgical History: Reports: None - SUBSTANCE USE Smoking Status *Q: Former Smoker Tobacco Use Within Last Twelve Months: No Second Hand Smoke Exposure: No Days Per Week of Alcohol Use: 0 Number of Drinks Per Day: 0 Total Drinks Per Week: 0 Recreational Drug Use History: No - HOME MEDS Home Medications: Home Meds valACYclovir HCl [Valtrex] 1,000 mg PO DAILY 03/24/15 [History] Levothyroxine 50 mcg PO DAILY 10/25/15 [History] Budesonide [Budesonide EC] 6 mg PO DAILY 01/26/16 [History] SUMAtriptan Succinate [Imitrex] 1 tab PO ASDIRECTED PRN 03/13/16 [History] Omeprazole 40 mg PO BID 11/27/16 [History] ALPRAZolam [Xanax] 0.25 mg PO ASDIRECTED PRN 07/10/17 [History] Acetaminophen/HYDROcodone [[place] 325-5 MG] 1 - 2 tab PO Q6H PRN #30 tablet 07/10 [Rx] Albuterol [Proair HFA] 1 puff INH ASDIRECTED PRN 07/10/17 [History] Aspirin 325 mg PO BID #84 tab 07/10/17 [Rx] Budesonide/Formoterol Fumarate [Symbicort 80-4.5 Mcg Inhaler] 1 puff INH ASDIRECTED PRN 07/10/17 [History] Zolpidem Tartrate [Ambien] 5 mg PO ASDIRECTED PRN 07/10/17 [History] - CURRENT (IN HOUSE) MEDS Current Meds: Current Medications Lactated Ringer's (Ringers, Lactated) 1,000 mls @ 125 mls/hr IV ASDIRECTED REYES Stop: 07/11/17 23:00 Lidocaine/Sodium Bicarbonate (Buffered Lidocaine 1% In Ns 8.4%) 0.25 ml IDERM ONETIME PRN PRN Reason: Prior to IV Start Stop: 07/11/17 18:00 Sodium Chloride (Saline Flush) 10 ml FLUSH ASDIRECTED PRN PRN Reason: Keep Vein Open Stop: 07/21/17 18:00 Discontinued Medications Fentanyl (Sublimaze) Confirm Administered Dose 100 mcg .ROUTE .STK-MED ONE Stop: 07/11/17 07:54 Lidocaine HCl (Xylocaine-Mpf 1%) Confirm Administered Dose 4 mls @ as directed .ROUTE .STK-MED ONE Stop: 07/11/17 07:54 Midazolam HCl (Versed 1 Mg/Ml) Confirm Administered Dose 2 mg .ROUTE .STK-MED ONE Stop: 07/11/17 07:54 Propofol (Diprivan 20 Ml) Confirm Administered Dose 200 mg .ROUTE .STK-MED ONE Stop: 07/11/17 07:54
[2017-07-11] MEDS ORDERED: Clindamycin Phosphate 900 MG/6 ML AdvVial ONE (09:26)
[2017-07-11] MEDS ORDERED: Sodium Chloride 0.9% 100 ML ONE (09:26)
[2017-07-11] MEDS ORDERED: Propofol 200 MG/20 ML SDV ONE (09:35)
[2017-07-11] MEDS ORDERED: Acetaminophen/HYDROcodone 325-5 MG Tab PO ONE ×2 (09:39→11:25)
[2017-07-11] MEDS ORDERED: fentaNYL 250 MCG/5 ML SDV ONE (09:45)
[2017-07-11] MEDS ORDERED: fentaNYL 100 MCG/2 ML SDV IVPUSH PRN (10:15)
[2017-07-11] MEDS ORDERED: Ketorolac 30 MG/ML SDV IVPUSH PRN (10:15)
[2017-07-11] MEDS ORDERED: HYDROmorphone 0.5 MG/0.5 ML Syringe IVPUSH ONE (10:16)
[2017-07-11] MEDS ORDERED: HYDROmorphone 0.5 MG/0.5 ML Syringe ONE (10:18)
--- NOTE | 2017-07-11 10:19 | PCM.POSTAN ---
POST ANESTHESIA ASSESSMENT - MENTAL STATUS Mental Status: Somnolent - VITAL SIGNS Pulse Rate: 72 SaO2: 98 Resp Rate: 10 Blood Pressure: 90/42 Temperature: 36.7 C - RESPIRATORY Respiratory Status: Respiratory Rate WNL, Airway Patent, O2 Saturation Stable, Supplemental Oxygen - CARDIOVASCULAR CV Status: Pulse Rate WNL, Blood Pressure Stable - GASTROINTESTINAL GI Status: No Symptoms - PAIN Pain Score: 0 - POST OP HYDRATION Hydration Status: Adequate & Stable - OBSERVATIONS Free Text/Narrative:: no anesthesia complications noted
[2017-07-11 13:04] VITALS: BP 105/60
--- NOTE | 2017-07-20 07:43 | PCM.OPNOTE ---
- General Post-Op/Procedure Note Date of Surgery/Procedure: 07/12/17 Operative Procedure(s): right first interwebspace irrigation and debridement Pre Op Diagnosis: right first interwebspace pain Post-Op Diagnosis: Same Anesthesia Technique: General LMA, Local Primary Surgeon: Mando Rebollar Anesthesia Provider: Wisam Mackenzie Graduate Research Assistant: Jerri Oliveira in mLs: 10 Complications: None Condition: Good
--- NOTE | 2017-07-20 09:19 | OR ---
DATE OF OPERATION: 07/12/2017 SURGEON: Mando Rebollar MD OPERATION PERFORMED: Right 1st interweb space irrigation and debridement. PREOPERATIVE DIAGNOSIS: Right 1st interweb space pain. POSTOPERATIVE DIAGNOSIS: Right 1st interweb space pain. ANESTHESIA: General LMA with local. ANESTHESIA PROVIDER: Wisam Mackenzie CRNA. RETAIL DIRECTOR: Jerri Oliveira PA-C. ESTIMATED BLOOD LOSS: 10 mL. COMPLICATIONS: None. CONDITION: Stable. DESCRIPTION OF PROCEDURE: The patient was identified in the preop holding area. Proper site was marked and identified by the surgeon. The patient was taken back to the operating theater where after adequate anesthesia, the patient's right lower extremity had a nonsterile tourniquet applied and was then sterilely prepped and draped in the usual sterile fashion. OR time-out was performed. The patient received 2 g IV Ancef. At this time, the right lower extremity had previous incision utilized, an incision was made. This was taken down to the 1st interweb space. There was no significant purulence noted. There was a small amount of fluid collection and significant scar tissue noted throughout. At this time, I did debride roughly 4 cm2 of soft tissue as well as fatty tissue out of the 1st interweb space as well as did debride some of the skin out along the wound edges. At this time, 3 L normal saline was irrigated through the wound. The patient did receive IV antibiotics after 3 cultures were taken. At this time, a layered closure was done with 2-0 Vicryl deep, 3-0 Vicryl subcutaneously, and 4-0 nylon for the skin. The patient was placed in a sterile soft dressing and posterior slab splint and sent to PACU in stable condition. MMODAL /[id number]
== END 2017-07-11 12:45 | disposition home or self-care (01) ==
LOC: JD.SDS 08:40
PROVIDERS: ATTEND Orthopaedic Surgery
DX: M79.671 Pain in right foot (principal); F41.9 Anxiety disorder, unspecified; K21.9 Gastro-esophageal reflux disease without esophagitis; J45.909 Unspecified asthma, uncomplicated; F32.9 Major depressive disorder, single episode, unspecified; Z87.891 Personal history of nicotine dependence
CPT/HCPCS: 11043; 87075; 87205; 87641; A9270; J1170; J1885; J2250; J3010; J3490; J7030; J7120; 00400; J2704

== ENCOUNTER 2017-10-27 17:56 | Emergency (ER) | payer MEDICAID ==
[2017-10-27] MEDS ORDERED: Ondansetron 4 MG/2 ML SDV IVPUSH ONE (18:21)
[2017-10-27] MEDS ORDERED: Sodium Chloride 0.9% 10 ML Syringe FLUSH PRN (18:21)
[2017-10-27] MEDS ORDERED: HYDROmorphone 0.5 MG/0.5 ML SYRINGE IVPUSH ONE ×2 (18:23→19:47)
[2017-10-27] MEDS ORDERED: Ketorolac 30 MG/ML SDV IVPUSH ONE (18:23)
[2017-10-27] MEDS ORDERED: Sodium Chloride 0.9% 1,000 ML IV SCH (18:30)
--- NOTE | 2017-10-27 19:16 | EDM.PDOC ---
ED HPI GENERAL MEDICAL PROBLEM - General Chief Complaint: Flank Pain Stated Complaint: ABDOMINAL PAIN Time Seen by Provider: 10/27/17 18:12 Source of Information: Reports: Patient History Limitations: Reports: No Limitations - History of Present Illness INITIAL COMMENTS - FREE TEXT/NARRATIVE: The patient presents with left flank pain. This started about 11am this morning. She has a history of kidney stones. She passed 2 after a . She has nausea but no vomiting. She has no fever, chills, cough, chest pain, shortness of breath, dysuria, hematuria or diarrhea. She had a hysterectomy. Onset: Sudden Duration: Hour(s): (11am) Location: Reports: Back (Left flank) Quality: Reports: Sharp Severity: Severe Improves with: Reports: None Worsens with: Reports: None Associated Symptoms: Reports: Nausea/Vomiting. Denies: Confusion, Chest Pain, Cough, Fever/Chills, Headaches, Shortness of Breath Left Flank Pain Score (Numeric/FACES): 8 - Related Data Allergies Allergy/AdvReac Type Severity Reaction Status Date / Time cephalexin Allergy Headache Verified 10/27/17 18:06 pertussis vaccine,fluid Allergy Anaphylactic Verified 10/27/17 18:06 [Pertussis Vaccine,Fluid] Shock risperidone Allergy Hives Verified 10/27/17 18:06 shellfish derived Allergy Anaphylactic Verified 10/27/17 18:06 Shock cefdinir [From Omnicef] AdvReac Muscle Verified 10/27/17 18:06 Aches promethazine HCl AdvReac Muscle Verified 10/27/17 18:06 [From Phenergan] Weakness Home Meds: Home Meds valACYclovir HCl [Valtrex] 1,000 mg PO DAILY 03/24/15 [History] Levothyroxine 50 mcg PO DAILY 10/25/15 [History] Budesonide [Budesonide EC] 6 mg PO DAILY 01/26/16 [History] SUMAtriptan Succinate [Imitrex] 1 tab PO ASDIRECTED PRN 03/13/16 [History] Omeprazole 40 mg PO BID 11/27/16 [History] ALPRAZolam [Xanax] 0.25 mg PO ASDIRECTED PRN 07/10/17 [History] Acetaminophen/HYDROcodone [Barrington 325-5 MG] 1 - 2 tab PO Q6H PRN #30 tablet 07/10 [Rx] Albuterol [Proair HFA] 1 puff INH ASDIRECTED PRN 07/10/17 [History] Aspirin 325 mg PO BID #84 tab 07/10/17 [Rx] Budesonide/Formoterol Fumarate [Symbicort 80-4.5 Mcg Inhaler] 1 puff INH ASDIRECTED PRN 07/10/17 [History] Zolpidem Tartrate [Ambien] 5 mg PO ASDIRECTED PRN 07/10/17 [History] Hydrocodone/Acetaminophen [Hydrocodon-Acetaminophen 5-325] 1 - 2 each PO Q6HR PRN #20 tablet 10/27/17 [Rx] Ondansetron [Zofran ODT] 4 mg PO Q6H PRN #20 tab.dis 10/27/17 [Rx] Past Medical History HEENT History: Reports: Allergic Rhinitis, Impaired Vision Other HEENT History: wears eyeglasses. Cardiovascular History: Reports: Heart Murmur Respiratory History: Reports: Asthma Gastrointestinal History: Reports: GERD Other Gastrointestinal History: Eosinophillic esophagitis Genitourinary History: Reports: Renal Calculus Other Genitourinary History: Hx of kidney stone--required removal. 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 03/14/16 lap vaginal hysterectomy with no complications Musculoskeletal History: Reports: Back Pain, Chronic Neurological History: Reports: Migraines Psychiatric History: Reports: Bipolar, Depression, Suicide Attempt Endocrine/Metabolic History: Reports: Hypothyroidism Hematologic History: Reports: Anemia Dermatologic History: Reports: Other (See Below) Other Dermatologic History: cold sores - Infectious Disease History Infectious Disease History: Reports: Chicken Pox, Herpes - Past Surgical History HEENT Surgical History: Reports: Naso-Sinus Surgery Other HEENT Surgeries/Procedures: Deviated septum repair Cardiovascular Surgical History: Reports: None Other Cardiovascular Surgeries/Procedures: Pt states Dr. Saldivar heard a heart murmur in the clinic. States she has one with the last and it went away. GI Surgical History: Reports: Cholecystectomy, EGD, Hernia Repair/Other Other GI Surgeries/Procedures: Umbilical hernia repair Female Surgical History: Reports: Section, Hysterectomy, Lithotripsy /ESWL, Ureteral Stent Other Female Surgeries/Procedures: Kidney stent on R kidney Endocrine Surgical History: Reports: None Neurological Surgical History: Reports: None Musculoskeletal Surgical History: Reports: None Social & Family History - Family History Family Medical History: Noncontributory - Tobacco Use Smoking Status *Q: Former Smoker Used Tobacco, but Quit: Yes Month/Year Tobacco Last Used: 2011 - Caffeine Use Caffeine Use: Reports: Coffee, Soda - Recreational Drug Use Recreational Drug Use: No - Living Situation & Occupation Living situation: Reports: , with Spouse, with Family Occupation: Unemployed ED ROS GENERAL - Review of Systems Review Of Systems: See Below Constitutional: Reports: No Symptoms HEENT: Reports: No Symptoms Respiratory: Reports: No Symptoms Cardiovascular: Reports: No Symptoms Endocrine: Reports: No Symptoms GI/Abdominal: Reports: Nausea. Denies: Abdominal Pain, Diarrhea, Vomiting : Reports: Flank Pain (Left). Denies: Dysuria, Hematuria Musculoskeletal: Reports: No Symptoms Skin: Reports: No Symptoms ED EXAM, GI/ABD - Physical Exam Exam: See Below Exam Limited By: No Limitations General Appearance: Alert, No Apparent Distress Ears: Normal External Exam Nose: Normal Inspection Head: Atraumatic, Normocephalic Neck: Normal Inspection Respiratory/Chest: No Respiratory Distress, Lungs Clear, Normal Breath Sounds Cardiovascular: Regular Rate, Rhythm, No Edema, No Murmur GI/Abdominal Exam: Soft, Non-Tender, No Organomegaly, No Mass Back Exam: CVA Tenderness (L) (Mild) Extremities: Normal Inspection Neurological: Alert, Oriented, No Motor/Sensory Deficits Course - Vital Signs Last Recorded V/S: Last Vital Signs Temp 98.0 F 10/27/17 18:03 Pulse 105 H 10/27/17 18:03 Resp 18 10/27/17 18:03 BP 124/81 10/27/17 18:03 Pulse Ox 98 10/27/17 18:03 - Orders/Labs/Meds Orders: Active Orders 24 hr Category Date Time Status Peripheral IV Care [RC] . DIRECTED Care 10/27/17 18:22 Active Abdomen Pelvis wo Cont [CT] Stat Exams 10/27/17 18:21 Taken UA W/MICROSCOPIC [URIN] Stat Lab 10/27/17 19:31 Ordered Sodium Chloride 0.9% [Normal Saline] 1,000 ml Med 10/27/17 18:30 Active IV ASDIRECTED Sodium Chloride 0.9% [Saline Flush] Med 10/27/17 18:21 Active 10 ml FLUSH ASDIRECTED PRN ED Antiemetic Medication Reflex [OM.PC] Stat Oth 10/27/17 18:22 Ordered Peripheral IV Insertion Adult [OM.PC] Stat Oth 10/27/17 18:21 Ordered Medication Orders Sodium Chloride (Normal Saline) 1,000 mls @ 125 mls/hr IV ASDIRECTED REYES Last Admin: 10/27/17 18:35 Dose: 125 mls/hr Sodium Chloride (Saline Flush) 10 ml FLUSH ASDIRECTED PRN PRN Reason: Keep Vein Open Last Admin: 10/27/17 18:37 Dose: 10 ml Labs: Laboratory Tests 10/27/17 10/27/17 10/27/17 Range/Units 18:40 18:40 19:31 WBC 10.45 H (3.98-10.04) K/mm3 RBC 4.53 (3.98-5.22) M/mm3 Hgb 12.6 (11.2-15.7) gm/L Hct 38.8 (34.1-44.9) % MCV 85.7 (79.4-94.8) fl MCH 27.8 (25.6-32.2) pg MCHC 32.5 (32.2-35.5) g/dl RDW Std Deviation 42.5 (36.4-46.3) fL Plt Count 328 (182-369) K/mm3 MPV 9.9 (9.4-12.3) fl Neut % (Auto) 62.9 (34.0-71.1) % Lymph % (Auto) 24.1 (19.3-51.7) % Villalba % (Auto) 6.2 (4.7-12.5) % Eos % (Auto) 6.2 H (0.7-5.8) Baso % (Auto) 0.4 (0.1-1.2) % Neut # (Auto) 6.57 H (1.56-6.13) K/mm3 Lymph # (Auto) 2.52 (1.18-3.74) K/mm3 Villalba # (Auto) 0.65 H (0.24-0.36) K/mm3 Eos # (Auto) 0.65 H (0.04-0.36) K/mm3 Baso # (Auto) 0.04 (0.01-0.08) K/mm3 Sodium 138 (136-145) mEq/L Potassium 4.0 (3.5-5.1) mEq/L Chloride 104 (98-107) mEq/L Carbon Dioxide 25 (21-32) mEq/L Anion Gap 13.0 (5-15) BUN 17 (7-18) mg/dL Creatinine 0.9 (0.55-1.02) mg/dL Est Cr Clr Drug Dosing 82.25 mL/min Estimated GFR (MDRD) > 60 (>60) mL/min BUN/Creatinine Ratio 18.9 H (14-18) Glucose 88 (74-106) mg/dL Calcium 8.8 (8.5-10.1) mg/dL Total Bilirubin 0.2 (0.2-1.0) mg/dL AST 19 (15-37) U/L ALT 23 (14-59) U/L Alkaline Phosphatase 106 (46-116) U/L Total Protein 7.4 (6.4-8.2) g/dl Albumin 3.8 (3.4-5.0) g/dl Globulin 3.6 gm/dL Albumin/Globulin Ratio 1.1 (1-2) Lipase 84 (73-393) U/L Urine Color Yellow (Yellow) Urine Appearance Clear (Clear) Urine pH 6.0 (5.0-8.0) Ur Specific [place] > or = 1.030 (1.005-1.030) Urine Protein Negative (Negative) Urine Glucose (UA) Negative (Negative) Urine Ketones Negative (Negative) Urine Occult Blood Negative (Negative) Urine Nitrite Negative (Negative) Urine Bilirubin Negative (Negative) Urine Urobilinogen 0.2 (0.2-1.0) Ur Leukocyte Esterase Negative (Negative) Urine RBC 0-5 (0-5) /hpf Urine WBC 0-5 (0-5) /hpf Ur Epithelial Cells 0-5 (0-5) /hpf Urine Bacteria Few (FEW) /hpf Urine Mucus Few (FEW) /hpf Meds: Medications Generic Name Dose Route Start Last Admin Trade Name Freq PRN Reason Stop Dose Admin Sodium Chloride 1,000 mls @ 125 mls/hr 10/27/17 18:30 10/27/17 18:35 Normal Saline IV 125 mls/hr ASDIRECTED REYES Administration Sodium Chloride 10 ml 10/27/17 18:21 10/27/17 18:37 Saline Flush FLUSH 10 ml ASDIRECTED PRN Administration Keep Vein Open Discontinued Medications Generic Name Dose Route Start Last Admin Trade Name Freq PRN Reason Stop Dose Admin Hydromorphone HCl 0.5 mg 10/27/17 18:23 10/27/17 18:32 Dilaudid IVPUSH 10/27/17 18:24 0.5 mg ONETIME ONE Administration Hydromorphone HCl 0.5 mg 10/27/17 19:47 10/27/17 19:52 Dilaudid IVPUSH 10/27/17 19:48 0.5 mg ONETIME ONE Administration Ketorolac Tromethamine 30 mg 10/27/17 18:23 10/27/17 18:31 Toradol IVPUSH 10/27/17 18:24 30 mg ONETIME ONE Administration Ondansetron HCl 4 mg 10/27/17 18:21 10/27/17 18:31 Zofran IVPUSH 10/27/17 18:22 4 mg ONETIME ONE Administration - Re-Assessments/Exams Free Text/Narrative Re-Assessment/Exam: 10/27/17 19:14 I ordered an IV NS at 125mL/hr, zofran 4mg IV, dilaudid 0.5mg IV, toradol 30mg IV, labs, UA and a CT of her abdomen and pelvis without contrast. 10/27/17 19:16 Her WBC was slightly elevated at 10.45. Her CMP looks good. Her lipase was negative. 10/27/17 20:03 Her UA shows no UTI. Her CT shows nonobstructive bilateral nephrolithiasis. I feel she passed the stone already. She is having more pain. I ordered dilaudid 0.5mg IV. Departure - Departure Time of Disposition: 20:05 Disposition: Home, Self-Care 01 Condition: Good Clinical Impression: Ureteric colic, Kidney stones - Discharge Information *PRESCRIPTION DRUG MONITORING PROGRAM REVIEWED*: Not Applicable *COPY OF PRESCRIPTION DRUG MONITORING REPORT IN PATIENT JULIETTE: Not Applicable Prescriptions: Hydrocodone/Acetaminophen [Hydrocodon-Acetaminophen 5-325] 1 - 2 each PO Q6HR PRN #20 tablet PRN Reason: Pain Ondansetron [Zofran ODT] 4 mg PO Q6H PRN #20 tab.dis PRN Reason: Nausea\vomiting Referrals: Debo Manning PA-C [Primary Care Provider] - 1 Week Forms: ED Department Discharge Additional Instructions: Drink plenty of fluids. Take the zofran every 6 hours as needed for nausea and vomiting. Take the hydrocodone as needed for pain. Please return if you are worse. Follow up with your doctor in 1 week. - My Orders Last 24 Hours: My Active Orders 10/27/17 18:21 Abdomen Pelvis wo Cont [CT] Stat Sodium Chloride 0.9% [Saline Flush] 10 ml FLUSH ASDIRECTED PRN Peripheral IV Insertion Adult [OM.PC] Stat 10/27/17 18:22 Peripheral IV Care [RC] . DIRECTED ED Antiemetic Medication Reflex [OM.PC] Stat 10/27/17 18:30 Sodium Chloride 0.9% [Normal Saline] 1,000 ml IV ASDIRECTED 10/27/17 19:31 UA W/MICROSCOPIC [URIN] Stat - Assessment/Plan Last 24 Hours: My Active Orders 10/27/17 18:21 Abdomen Pelvis wo Cont [CT] Stat Sodium Chloride 0.9% [Saline Flush] 10 ml FLUSH ASDIRECTED PRN Peripheral IV Insertion Adult [OM.PC] Stat 10/27/17 18:22 Peripheral IV Care [RC] . DIRECTED ED Antiemetic Medication Reflex [OM.PC] Stat 10/27/17 18:30 Sodium Chloride 0.9% [Normal Saline] 1,000 ml IV ASDIRECTED 10/27/17 19:31 UA W/MICROSCOPIC [URIN] Stat
[2017-10-27 20:24] VITALS: BP 122/80
--- NOTE | 2017-10-28 11:01 | CT ---
CT abdomen and pelvis Technique: Multiple axial sections were obtained from above the dome of the diaphragm inferiorly through the pubic symphysis. Intravenous and oral contrast not utilized. Study has been performed as a ureteral stone protocol. Comparison: Prior noncontrast CT abdomen and pelvis study of 03/24/16. Findings: Left kidney shows a nonobstructing stone which appears similar to previous exam measuring about 4.7 mm. Very small nonobstructing stone noted within the right kidney. No other abnormal calcifications are seen within the kidneys. Ureters show no dilatation. No abnormal calcifications seen along the course of the ureters. Visualized lung bases show nothing acute. Noncontrast appearance of the liver and spleen appears within normal limits. Surgical clips are seen from prior cholecystectomy. Adrenal glands are unremarkable. Pancreas shows no discrete abnormality. Aorta shows no aneurysmal dilatation. No retroperitoneal adenopathy or mesenteric abnormalities are seen. No pelvic mass or adenopathy is seen. No free fluid or inflammatory change is seen. Bone window settings were reviewed which appear within normal limits for the patient's age. Impression: 1. Nonobstructing calculi within both kidneys. No ureteral dilatation or ureteral stone is seen. 2. No additional abnormality appreciated on noncontrast CT study of the abdomen and pelvis performed as a ureteral stone protocol. Diagnostic code #2 I agree with preliminary report issued by [email or web address] ([facility] report finalized on 10/27/17, 8:53 PM)
== END 2017-10-27 20:17 | disposition home or self-care (01) ==
LOC: JD.ED 17:56
DX: N13.2 Hydronephrosis with renal and ureteral calculous obstruction (principal); J45.909 Unspecified asthma, uncomplicated; K21.9 Gastro-esophageal reflux disease without esophagitis; E03.9 Hypothyroidism, unspecified; Z88.1 Allergy status to other antibiotic agents; Z88.8 Allergy status to other drugs, medicaments and biological substances; Z88.7 Allergy status to serum and vaccine; Z79.82 Long term (current) use of aspirin; Z79.899 Other long term (current) drug therapy; Z87.891 Personal history of nicotine dependence
CPT/HCPCS: 36415; 74176; 80053; 81001; 83690; 85025; 96361; 96374; 96375; 96376; 99284; J1170; J1885; J2405; J7040; J7050

== ENCOUNTER 2017-12-02 21:48 | Emergency (ER) | payer MEDICAID ==
[2017-12-02 21:55] VITALS: BP 153/80
[2017-12-02] MEDS ORDERED: Ketorolac 60 MG/2 ML SDV IM ONE (22:30)
--- NOTE | 2017-12-02 22:33 | EDM.PDOC ---
ED HPI GENERAL MEDICAL PROBLEM - General Chief Complaint: ENT Problem Stated Complaint: tooth pain Time Seen by Provider: 12/02/17 22:15 Source of Information: Reports: Patient History Limitations: Reports: No Limitations - History of Present Illness INITIAL COMMENTS - FREE TEXT/NARRATIVE: 32-year-old female presents for evaluation and treatment of right upper tooth pain. Patient reports the pain started on Sunday. She reports she recently had a crown placed a tooth #4. She deteriorate canal recently to tooth #3. She saw her dentist this week has been referred to an veterans' counselor. She is scheduled have a root canal on Sunday with an veterans' counselor in [place]. She states that the provider called in a perception for amoxicillin 500mg 3 times a day and tramadol 50 mg every 4-6 on Sunday. She states she's been using the tramadol, Tylenol, Motrin, ice and he has not had any symptom relief. She states that she appreciated swelling to the right side of her face but this has now resolved. She reports intermittent bad taste in her mouth. Reports pain is in the right maxilla and extends up into her right ear. She reports associated symptoms of nausea but no fevers, chills or vomiting. Right Upper Tooth/Teeth Pain Score (Numeric/FACES): 7 - Related Data Allergies Allergy/AdvReac Type Severity Reaction Status Date / Time cephalexin Allergy Headache Verified 10/27/17 18:06 pertussis vaccine,fluid Allergy Anaphylactic Verified 10/27/17 18:06 [Pertussis Vaccine,Fluid] Shock risperidone Allergy Hives Verified 10/27/17 18:06 shellfish derived Allergy Anaphylactic Verified 10/27/17 18:06 Shock cefdinir [From Omnicef] AdvReac Muscle Verified 10/27/17 18:06 Aches promethazine HCl AdvReac Muscle Verified 10/27/17 18:06 [From Phenergan] Weakness Home Meds: Home Meds valACYclovir HCl [Valtrex] 1,000 mg PO DAILY 03/24/15 [History] Levothyroxine 50 mcg PO DAILY 10/25/15 [History] Omeprazole 40 mg PO BID 11/27/16 [History] ALPRAZolam [Xanax] 0.25 mg PO ASDIRECTED PRN 07/10/17 [History] Albuterol [Proair HFA] 1 puff INH ASDIRECTED PRN 07/10/17 [History] Budesonide/Formoterol Fumarate [Symbicort 80-4.5 Mcg Inhaler] 1 puff INH ASDIRECTED PRN 07/10/17 [History] traZODone HCl [Trazodone HCl] 100 mg PO BEDTIME 12/02/17 [History] Past Medical History HEENT History: Reports: Allergic Rhinitis, Impaired Vision, Other (See Below) Other HEENT History: wears eyeglasses.dental issues Cardiovascular History: Reports: Heart Murmur Respiratory History: Reports: Asthma Gastrointestinal History: Reports: GERD Other Gastrointestinal History: Eosinophillic esophagitis Genitourinary History: Reports: Renal Calculus Other Genitourinary History: Hx of kidney stone--required removal. 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 03/14/16 lap vaginal hysterectomy with no complications Musculoskeletal History: Reports: Back Pain, Chronic Neurological History: Reports: Migraines Psychiatric History: Reports: Bipolar, Depression, Suicide Attempt Endocrine/Metabolic History: Reports: Hypothyroidism Hematologic History: Reports: Anemia Dermatologic History: Reports: Other (See Below) Other Dermatologic History: cold sores - Infectious Disease History Infectious Disease History: Reports: Chicken Pox, Herpes - Past Surgical History HEENT Surgical History: Reports: Naso-Sinus Surgery Other HEENT Surgeries/Procedures: Deviated septum repair Cardiovascular Surgical History: Reports: None Other Cardiovascular Surgeries/Procedures: Pt states Dr. Saldivar heard a heart murmur in the clinic. States she has one with the last and it went away. GI Surgical History: Reports: Cholecystectomy, EGD, Hernia Repair/Other Other GI Surgeries/Procedures: Umbilical hernia repair Female Surgical History: Reports: Section, Hysterectomy, Lithotripsy /ESWL, Ureteral Stent Other Female Surgeries/Procedures: Kidney stent on R kidney Endocrine Surgical History: Reports: None Neurological Surgical History: Reports: None Musculoskeletal Surgical History: Reports: None Social & Family History - Family History Family Medical History: Noncontributory - Tobacco Use Smoking Status *Q: Former Smoker Used Tobacco, but Quit: Yes Month/Year Tobacco Last Used: 2011 - Caffeine Use Caffeine Use: Reports: Coffee, Soda - Recreational Drug Use Recreational Drug Use: No - Living Situation & Occupation Living situation: Reports: , with Spouse, with Family Occupation: Unemployed ED ROS ENT - Review of Systems Review Of Systems: See Below Constitutional: Denies: Fever, Chills HEENT: Reports: Dental Pain (#3 and #4), Ear Pain (right), Other (reports facial sweling, has now improved) GI/Abdominal: Reports: Nausea. Denies: Vomiting ED EXAM, ENT - Physical Exam Exam: See Below Exam Limited By: No Limitations General Appearance: Alert, WD/WN, Mild Distress, Obese Eye Exam: Bilateral Eye: Normal Inspection, PERRL Ears: Normal External Exam, Normal Canal, Hearing Grossly Normal, Normal TMs Nose: Normal Inspection Mouth/Throat: Normal Inspection, Normal Lips, Normal Oropharynx, Normal Teeth, Dental Tenderness (#3), Gum Swelling (#3; regression and minor swelling). No: Dental Abcess, Dental Trauma Head: Facial Tenderness (right maxilla ). No: Facial Swelling Neck: Normal Inspection, Full Range of Motion. No: Lymphadenopathy (L), Lymphadenopathy (R) Respiratory/Chest: No Respiratory Distress, Lungs Clear, Normal Breath Sounds Cardiovascular: Normal Peripheral Pulses, Regular Rate, Rhythm, No Murmur Neurological: Alert, Oriented, Normal Cognition Psychiatric: Normal Affect, Normal Mood Skin: Warm, Dry, Normal Color Course - Vital Signs Last Recorded V/S: Last Vital Signs Temp 97.7 F 12/02/17 21:54 Pulse 115 H 12/02/17 21:54 Resp 20 12/02/17 21:54 BP 153/80 H 12/02/17 21:54 Pulse Ox 98 12/02/17 21:54 - Orders/Labs/Meds Meds: Medications Discontinued Medications Generic Name Dose Route Start Last Admin Trade Name Sharon PRN Reason Stop Dose Admin Ketorolac Tromethamine 60 mg 12/02/17 22:30 Toradol IM 12/02/17 22:31 ONETIME ONE - Re-Assessments/Exams Free Text/Narrative Re-Assessment/Exam: 12/02/17 22:30 Patient was searched on a [place] prescription drug registry. She has received 29 prescriptions from 10 different providers within the last year for controlled substances. Most recently she received tramadol 50 mg #20 on 11/30. I do feel that she is drug seeking. I do not feel comfortable prescribing her any additional pain medication. I will give her shot of Toradol tonight. I will have her maximize her tramadol she can take 100 mg every 6 hours for maximum 400 mg per day. She is to follow-up with her dentist if she needs further pain management. Discharge instructions as documented. Departure - Departure Time of Disposition: 22:33 Disposition: Home, Self-Care 01 Condition: Fair Clinical Impression: Pain, dental - Discharge Information *PRESCRIPTION DRUG MONITORING PROGRAM REVIEWED*: Yes *COPY OF PRESCRIPTION DRUG MONITORING REPORT IN PATIENT JULIETTE: No Referrals: Debo Manning PA-C [Primary Care Provider] - Forms: ED Department Discharge Additional Instructions: continue on your amoxicillin as prescribed. may increase your tramadol to 100mg PO every 6 hours, max of 400mg PO per day. may continue to take tylenol and motrin as needed for additional pain relief. Recommend trying topical orajel or clove oil for additional pain relief. Contact your dentist or and endontitis for additional pain control tomorrow if you need further pain management. Please Return to the ER if your symptoms change or worsen.
== END 2017-12-02 22:52 | disposition home or self-care (01) ==
LOC: JD.ED 21:48
DX: K08.89 Other specified disorders of teeth and supporting structures (principal); K21.9 Gastro-esophageal reflux disease without esophagitis; F31.9 Bipolar disorder, unspecified; E03.9 Hypothyroidism, unspecified; Z79.899 Other long term (current) drug therapy; Z87.891 Personal history of nicotine dependence; Z88.8 Allergy status to other drugs, medicaments and biological substances; Z88.1 Allergy status to other antibiotic agents; Z91.013 Allergy to seafood
CPT/HCPCS: 96372; 99282; J1885; 99283

== ENCOUNTER 2018-01-12 16:18 | Emergency (ER) | payer MEDICAID ==
[2018-01-12 16:34] VITALS: BP 128/79
[2018-01-12] MEDS ORDERED: HYDROmorphone 1 MG/ML Syringe IM ONE (17:12)
--- NOTE | 2018-01-12 17:27 | EDM.PDOC ---
ED HPI GENERAL MEDICAL PROBLEM - General Chief Complaint: Upper Extremity Injury/Pain Stated Complaint: RT ARM PAIN AND NUMB FROM SHOULDER TO FINGER TIP Time Seen by Provider: 01/12/18 16:41 Source of Information: Reports: Patient History Limitations: Reports: No Limitations - History of Present Illness INITIAL COMMENTS - FREE TEXT/NARRATIVE: Patient is a 32-year-old female with a history of chronic right-sided neck discomfort and carpal tunnel syndrome to the right extremity. Patient states over the past 3 weeks she has noticed intermittent episodes of numbness to her hand. She has been wearing the splint at night as directed for the carpal tunnel syndrome. Over the past 24 hours she's noticed some increasing discomfort to her right arm with moving her fingers and also the arm at the shoulder. She has some pinpoint tenderness along the anterior aspect of the shoulder. Denies any recent fall or activities that may have precipitated this. Although they are packing things up to move. She went to the chiropractor on Sunday with adjustments to her neck. At that time she had pain to the right trapezius muscle. Chiropractor was not too concerned. She has taken Tylenol and ibuprofen with no significant relief. She denies any weakness to her upper extremity. Pain is 4 out of 10 with no movement. It increases drastically with movement. No change in color noted. No increased pain to her neck with movement. She has no history of herniated disc. PCP suspects patient has fibromyalgia. Treatments CONSULTING NURSE: Reports: Other (see below) Other Treatments CONSULTING NURSE: tylenol,motrin, excedrin Right Arm Pain Score (Numeric/FACES): 5 - Related Data Allergies Allergy/AdvReac Type Severity Reaction Status Date / Time cephalexin Allergy Headache Verified 10/27/17 18:06 pertussis vaccine,fluid Allergy Anaphylactic Verified 10/27/17 18:06 [Pertussis Vaccine,Fluid] Shock risperidone Allergy Hives Verified 10/27/17 18:06 shellfish derived Allergy Anaphylactic Verified 10/27/17 18:06 Shock cefdinir [From Omnicef] AdvReac Muscle Verified 10/27/17 18:06 Aches promethazine HCl AdvReac Muscle Verified 10/27/17 18:06 [From Phenergan] Weakness Home Meds: Home Meds valACYclovir HCl [Valtrex] 1,000 mg PO DAILY 03/24/15 [History] Levothyroxine 50 mcg PO DAILY 10/25/15 [History] Omeprazole 40 mg PO BID 11/27/16 [History] ALPRAZolam [Xanax] 0.25 mg PO ASDIRECTED PRN 07/10/17 [History] Albuterol [Proair HFA] 1 puff INH ASDIRECTED PRN 07/10/17 [History] Budesonide/Formoterol Fumarate [Symbicort 80-4.5 Mcg Inhaler] 1 puff INH ASDIRECTED PRN 07/10/17 [History] traZODone HCl [Trazodone HCl] 100 mg PO BEDTIME 12/02/17 [History] Acetaminophen/HYDROcodone [Onset 325-5 MG] 1 tab PO Q6H PRN #12 tablet 01/12/18 [Rx] Past Medical History HEENT History: Reports: Allergic Rhinitis, Impaired Vision, Other (See Below) Other HEENT History: wears eyeglasses.dental issues Cardiovascular History: Reports: Heart Murmur Respiratory History: Reports: Asthma Gastrointestinal History: Reports: GERD Other Gastrointestinal History: Eosinophillic esophagitis Genitourinary History: Reports: Renal Calculus Other Genitourinary History: Hx of kidney stone--required removal. [employer] T[employer]ER History: Reports: Other [employer]ER History: CSX x2, HX of preeclampsia with first and high blood pressure with second . 03/14/16 lap vaginal hysterectomy with no complications Musculoskeletal History: Reports: Back Pain, Chronic Neurological History: Reports: Migraines Psychiatric History: Reports: Bipolar, Depression, Suicide Attempt Endocrine/Metabolic History: Reports: Hypothyroidism Hematologic History: Reports: Anemia Dermatologic History: Reports: Other (See Below) Other Dermatologic History: cold sores - Infectious Disease History Infectious Disease History: Reports: Chicken Pox, Herpes - Past Surgical History HEENT Surgical History: Reports: Naso-Sinus Surgery Other HEENT Surgeries/Procedures: Deviated septum repair Cardiovascular Surgical History: Reports: None Other Cardiovascular Surgeries/Procedures: Pt states Dr. Saldivar heard a heart murmur in the clinic. States she has one with the last and it went away. GI Surgical History: Reports: Cholecystectomy, EGD, Hernia Repair/Other Other GI Surgeries/Procedures: Umbilical hernia repair Female Surgical History: Reports: Section, Hysterectomy, Lithotripsy /ESWL, Ureteral Stent Other Female Surgeries/Procedures: Kidney stent on R kidney Endocrine Surgical History: Reports: None Neurological Surgical History: Reports: None Musculoskeletal Surgical History: Reports: None Social & Family History - Family History Family Medical History: Noncontributory - Tobacco Use Smoking Status *Q: Former Smoker Used Tobacco, but Quit: Yes Month/Year Tobacco Last Used: 6 yr - Caffeine Use Caffeine Use: Reports: Coffee, Soda - Recreational Drug Use Recreational Drug Use: No - Living Situation & Occupation Living situation: Reports: , with Spouse, with Family Occupation: Unemployed Review of Systems - Review of Systems Review Of Systems: ROS reveals no pertinent complaints other than HPI. (She denies any swelling, weakness, bruising, chest pain, shortness of breath, nausea vomiting, dizziness, vision changes, nuchal rigidity, headache, or any additional complaints.) ED EXAM, GENERAL - Physical Exam Exam: See Below Exam Limited By: No Limitations General Appearance: Alert, WD/WN, Moderate Distress Eye Exam: Bilateral Eye: Normal Inspection Ears: Hearing Grossly Normal Nose: Normal Inspection Throat/Mouth: Normal Voice, No Airway Compromise Head: Atraumatic, Normocephalic Neck: Normal Inspection, Supple, Full Range of Motion, Tender Lateral (Right trapezius into the right shoulder). No: Limited Range of Motion, Tender Midline Respiratory/Chest: No Respiratory Distress, Lungs Clear, Normal Breath Sounds, No Accessory Muscle Use, Chest Non-Tender Cardiovascular: Normal Peripheral Pulses, Regular Rate, Rhythm, No Murmur Peripheral Pulses: 2+: Radial (L), Radial (R) Back Exam: Normal Inspection, Full Range of Motion. No: Paraspinal Tenderness, Vertebral Tenderness Extremities: Normal Inspection, No Pedal Edema, Normal Capillary Refill, Other ( Pain noted with palpation of the right lateral and anterior shoulder with palpation. No bruising, swelling, rash, bony abdomen abnormalities noted. Some slight discomfort noted with palpation of the upper arm as well. No sensory changes distal. No range of motion issues noted. Strength 5 over 5 in comparison to the left. The median, radial, and ulnar nerve are all intact.) Neurological: Alert, Oriented, CN II-XII Intact, Normal Cognition, No Motor/ Sensory Deficits Psychiatric: Normal Affect, Normal Mood Skin Exam: Warm, Dry, Intact, Normal Color, No Rash Course - Vital Signs Last Recorded V/S: Last Vital Signs Temp 98.4 F 01/12/18 16:32 Pulse 113 H 01/12/18 16:32 Resp 20 01/12/18 16:32 BP 128/79 01/12/18 16:32 Pulse Ox 96 01/12/18 16:32 - Orders/Labs/Meds Orders: Active Orders 24 hr Category Date Time Status Shoulder Comp Rt [CR] Stat Exams 01/12/18 19:01 Taken Meds: Medications Discontinued Medications Generic Name Dose Route Start Last Admin Trade Name Sharon PRN Reason Stop Dose Admin Hydromorphone HCl 1 mg 01/12/18 17:12 01/12/18 17:34 Dilaudid IM 01/12/18 17:13 1 mg ONETIME ONE Administration Ketorolac Tromethamine 60 mg 01/12/18 19:01 01/12/18 19:15 Toradol IM 01/12/18 19:02 60 mg ONETIME ONE Administration - Re-Assessments/Exams Free Text/Narrative Re-Assessment/Exam: I ordered Dilaudid 1 mg IM for pain to the right shoulder. Patient complains of increasing pain to the right shoulder. Ordered Toradol 60 mg IM. X-ray of the right shoulder will be obtained. 2001Reassessment, patient states her pain is drastically improved with the 2 above therapies. I informed her to refrain from any activities that cause worsening pain. I suspect patient has a form of cervical radiculopathy with discomfort originating at the trapezius radiating down into her shoulder and arm. There is no sensory/motor deficits noted. There is no weakness noted. She has pinpoint tenderness along the anterior lateral aspect of the shoulder and along the transfer trapezius that worsens symptoms distally. With elevation of the right arm above her shoulder and while checking the pulse there was no loss of pulse or decrease in strength noted. This would be concerning for thoracic outlet syndrome. Patient will be provided a short course of pain medications. She'll be discharged home with instructions to follow-up with orthopedic surgeon and/or PCP this week for reevaluation. She may benefit from physical therapy and also may require a MRI study of the neck/shoulder. Discharge instructions as documented. The patient remained hemodynamically stable while under my care in the E.D. I discussed the concerning symptoms for which to returnto the E.D. with the patient/family. The patient/family verbalized understanding. All questions were answered. Departure - Departure Time of Disposition: :03 Disposition: Home, Self-Care 01 Condition: Good Clinical Impression: Right arm pain, Pain of right shoulder joint on movement, Neck pain on right side - Discharge Information Prescriptions: Acetaminophen/HYDROcodone [Onset 325-5 MG] 1 tab PO Q6H PRN #12 tablet PRN Reason: Pain (Severe 7-10) Instructions: Shoulder Pain, Musculoskeletal Pain, Pain Medicine Instructions, [id number], Joint Pain Referrals: Debo Manning PA-C [Primary Care Provider] - Mando Rebollar MD [Physician] - Forms: ED Department Discharge Additional Instructions: Refrain from any activities that cause worsening pain. Take the ibuprofen and tylenol in alternating fashion for pain. May utilize biofreeze as needed for pain relief as well. Take norco as directed for severe pain. Do not drive while taking the norco. Followup with Orthopedic Surgeon of your choice this coming week for reevaluation and to discuss further treatment options. See PCP for further pain management. Return to the E.D. if you develop any new or worsening symptoms. - My Orders Last 24 Hours: My Active Orders 01/12/18 19:01 Shoulder Comp Rt [CR] Stat - Assessment/Plan Last 24 Hours: My Active Orders 01/12/18 19:01 Shoulder Comp Rt [CR] Stat
[2018-01-12] MEDS ORDERED: Ketorolac 60 MG/2 ML SDV IM ONE (19:01)
--- NOTE | 2018-01-14 08:45 | CR ---
Right shoulder: Three views of the right shoulder were obtained. Comparison: No prior right shoulder exam. Glenohumeral joint appears within normal limits. Slightly elevated distal clavicle at the acromioclavicular joint is seen and minimal acromioclavicular separation is possible. No acute fracture or other bony abnormality is seen. Impression: 1. Equivocal and minimal right acromioclavicular separation, possibly acute or old. 2. Right shoulder study is otherwise unremarkable. Diagnostic code #3
== END 2018-01-12 20:15 | disposition home or self-care (01) ==
LOC: JD.ED 16:18
DX: M25.511 Pain in right shoulder (principal); M54.2 Cervicalgia; M79.601 Pain in right arm; Z90.49 Acquired absence of other specified parts of digestive tract; Z91.013 Allergy to seafood; Z88.1 Allergy status to other antibiotic agents; Z79.899 Other long term (current) drug therapy; Z88.7 Allergy status to serum and vaccine
CPT/HCPCS: 73030; 96372; 99283; J1170; J1885; 99284